=== PATIENT | female | born 1960 | race Caucasian/White ===

== ENCOUNTER 2021-12-29 13:12 | Outpatient (CLI) | payer SELFPAY ==
--- NOTE | 2021-12-29 13:21 | CT_ITS ---
STUDY: CT ABDOMEN AND PELVIS WITHOUT CONTRAST REASON FOR EXAM: Female, 61 years old. Anemia, epigastric AB PAIN,GERD RADIATION DOSAGE (If Supplied By Facility): CTDIvol = ( 17.83 ) mGy, DLP = ( 908.58 ) mGycm TECHNIQUE: Transaxial images were obtained from the dome of the diaphragm to the symphysis pubis without oral contrast, and without intravenous contrast. Sagittal and coronal images were reconstructed. Individualized dose optimization techniques were used for this CT. COMPARISON: None. FINDINGS: There is a faint 1.1 cm nodule in the posterior aspect of the right middle lobe abutting the right minor fissure. A CT scan of the thorax is recommended for further evaluation mild degree of pleural thickening along the posterior medial aspect of the right lower lobe. The visualized portions of the heart are within normal limits. Normal liver. Small amount of perihepatic and perisplenic fluid. Small amount of fluid is seen in the right paracolic gutter as well as in the pelvis in comparison with the ascites. There are multiple small gallstones. Normal spleen. Normal pancreas. Normal bilateral adrenal glands. Several nonobstructive right intrarenal calculi are seen. The largest measures 3 mm. Minimal degree of the fullness of the right renal pelvis. Normal left kidney. Normal visualized stomach. Normal small intestine. There are multiple colonic diverticula consistent with diverticulosis. The appendix is visualized and appears normal. There is diffuse atherosclerotic calcification of the abdominal aorta, without a demonstrated aneurysm. Normal inferior vena cava. There is borderline retroperitoneal lymphadenopathy with enlarged nodes no greater than 10mm in the short axis diameter. Findings suggestive of a 5.2 mm calculus at the base of the bladder posteriorly. This may represent a recently passed ureteral calculus. Normal abdominal wall. Disc space narrowing and degeneration at the L5-S1 level. CT/Abdomen/Pelvis without Cont IMPRESSION: Findings suggestive of 5.2 mm calculus at the base of the bladder posteriorly. Right intrarenal calculi with mild fullness of the right renal pelvis. Multiple small gallstones. Ascites. 1.1 cm faint nodule seen in the posterior aspect of the right middle lobe. Correlation with a CT scan of the thorax is recommended for further evaluation. Electronically Signed: Kemar Jimenez MD at 14:08 EDT ,
== END 2021-12-29 23:59 | disposition home or self-care (01) ==
LOC: CT 13:17
PROVIDERS: PCP Family Medicine; Referring Provider Family Medicine; Visit Provider Family Medicine
DX: K21.9 Gastro-esophageal reflux disease without esophagitis (principal); D64.9 Anemia, unspecified; R10.13 Epigastric pain
CPT/HCPCS: 74176

== ENCOUNTER → 2022-01-03 | Outpatient (CLI) | payer SELFPAY ==
--- NOTE | 2022-01-03 13:21 | CT_ITS ---
INDICATION: LUNG NODULE EXAMINATION: CT CHEST WITHOUT CONTRAST - CT Chest W/O Contrast Injection TECHNIQUE: Helically acquired images were obtained of the chest. A radiation dose optimization technique was used for this scan. IV Contrast dosage and agent: None. COMPARISON: 12/29/2021. FINDINGS: LUNGS, PLEURA AND LARGE AIRWAYS: Biapical pleural reaction is visualized with subtle scattered densities and architectural distortion no evidence of parenchymal lung masses seen. There is visualized in the right upper lung field on axial series 4 image 15. 0.5 cm subpleural nodule visualized in the anterolateral aspect of the right lower lung cardona seen on axial series 4 image 91/127. No evidence of area of opacification along the anterior aspect of the right effusion. Focal area of for groundglass opacification visualized in the right middle lobe seen on axial series 4 image 86 most likely representing a trapping. Scattered areas of patchy airspace density suggestive of air trapping. Bronchial wall thickening is visualized bilaterally, no evidence of endoluminal lesions is seen. No evidence of pneumothorax or pleural effusion is seen. THYROID: No thyroid lesions. HEART AND PERICARDIUM: Heart size is normal. No pericardial effusion. VESSELS: Thoracic aorta is not dilated. MEDIASTINUM AND FOREIGN: Scattered hilar and mediastinal adenopathy. Esophagus is unremarkable. No hiatal hernia. UPPER ABDOMEN: Limited evaluation of upper abdomen demonstrates small free fluid visualized surrounding the liver and spleen. BONES: No suspicious lytic or blastic abnormality. Bilateral breast implants seen demonstrating circumferential calcifications. CT/Chest without Contrast IMPRESSION: No evidence of such suspicious parenchymal lung nodule or mass. Electronically Signed: Rj Hutton MD at 15:10 EDT ,
== END | disposition home or self-care (01) ==
LOC: CT 13:16
PROVIDERS: PCP Family Medicine; Visit Provider Family Medicine
DX: R91.1 Solitary pulmonary nodule (principal); Z98.82 Breast implant status
CPT/HCPCS: 71250

== ENCOUNTER → 2023-02-13 | Outpatient (CLI) | payer SELFPAY ==
--- NOTE | 2023-02-13 09:23 | US_ITS ---
INDICATION: Right upper quadrant pain. EXAMINATION: Ultrasound US Abdomen Limited (quadrant) TECHNIQUE: Fierro scale and color doppler imaging was performed of the right upper quadrant. COMPARISON: CT of the abdomen dated December 29, 2021 FINDINGS: LIVER: The liver contour is nodular. The liver parenchyma is mildly heterogenous. No focal hepatic lesion. There is no free fluid. GALLBLADDER AND BILIARY TREE: There are gallstones within the gallbladder. There is no gallbladder wall thickening nor pericholecystic fluid. The proximal common bile duct measures 3.1 mm, which is within normal limits for the patient''s age. Songraphic Smith''s sign: Negative. PANCREAS: No focal abnormality is demonstrated in the pancreas. No pancreatic ductal dilatation. RIGHT KIDNEY: The right kidney measures 9.5 cm in length. There is no hydronephrosis. There are nonobstructing right renal calculi measuring up to 4 mm. There is ascites. There is a right pleural effusion. US/Abdomen Limited IMPRESSION: Cirrhotic appearing liver. Nonobstructing right renal calculi measuring up to 4 mm. Ascites. Right pleural effusion. Electronically Signed: Christina Hitchcock MD at 11:27 EDT ,
== END | disposition home or self-care (01) ==
LOC: US 09:22
PROVIDERS: PCP Family Medicine; Referring Provider Family Medicine; Visit Provider Family Medicine
DX: R10.11 Right upper quadrant pain (principal); R16.0 Hepatomegaly, not elsewhere classified
CPT/HCPCS: 76705

== ENCOUNTER → 2024-01-02 | Outpatient (CLI) | payer MEDICARE, SELFPAY ==
--- NOTE | 2024-01-02 12:54 | CT_ITS ---
HISTORY: Personal history of nicotine dependence. TECHNIQUE: Helically acquired images were obtained of the chest without contrast. A radiation dose optimization technique was used for this scan. 554 images. COMPARISON: 01/03/2022. FINDINGS: LARGE AIRWAYS: Grossly patent. LUNGS: Mild paraseptal emphysema. Chronic biapical scarring with juxtapleural nodules and scars similar to prior. PLEURA: No pneumothorax or significant pleural effusion. HEART/PERICARDIUM: Heart within normal limits in size with coronary artery calcification. No pericardial effusion. VESSELS: Thoracic aorta nondilated. Mild atherosclerosis. MEDIASTINUM/FOREIGN: Scattered small mediastinal lymph nodes. UPPER ABDOMEN: Nodular liver. CHEST WALL: Intact osseous structures. Chronic calcified breast implant capsules. CT/Low Dose CT Lung Screening IMPRESSION: Lung-RADS category 2: Continue annual screening with low dose CT. Electronically Signed: Leah Hutton MD at 12:16 EDT ,
== END | disposition home or self-care (01) ==
PROVIDERS: PCP Family Medicine; Referring Provider Family Medicine; Visit Provider Family Medicine
DX: Z12.2 Encounter for screening for malignant neoplasm of respiratory organs (principal); J43.2 Centrilobular emphysema; Z87.891 Personal history of nicotine dependence
CPT/HCPCS: 71271

== ENCOUNTER → 2024-04-01 | Outpatient (CLI) | payer MEDICARE, SELFPAY ==
[2024-04-01 10:09] LABS: Erythrocyte Sedimentation Rate 11 mm/hr (0-30)
[2024-04-01 10:44] LABS: ALB/GLOB Ratio 0.8 RATIO (0.9-2.4); AST(SGOT) 33 U/L (15-37); Alanine Aminotransfer ALT/SGPT 33 U/L (13-56); Albumin, Serum 3.2 g/dL (3.2-5.0); Alkaline Phosphatase 127 U/L (45-117); Anion Gap 9 (5-15); BUN 10 mg/dL (7-18); BUN/Creat Ratio 10.8 RATIO (10-20); Calcium,Total 10.3 mg/dL (8.5-10.1); Chloride 100 mmol/L (98-107); Creatinine, Serum 0.92 mg/dL (0.55-1.02); EST Glomerular Filtration Rate 65 mL/min (>60); Est Glom Filt Rate - Afr Amer 78 mL/min (>60); Globulin 4.2 g/dL (2.2-4.2); Glucose 211 mg/dL (74-106); LDH 132 U/L (84-246); Potassium 3.8 mmol/L (3.5-5.1); Protein, Total 7.4 g/dL (6.4-8.2); Sodium Level 135 mmol/L (136-145)
[2024-04-04 15:09] LABS: Anti-Centromere B Ab <0.2 AI (0.0-0.9); Anti-Chromatin <0.2 AI (0.0-0.9); Anti-Jo <0.2 AI (0.0-0.9); Anti-Mitochondrial AB 23.9 Units (0.0-20.0); Anti-Scleroderma-70 AB <0.2 AI (0.0-0.9); Anti-dsDNA Ab <1 IU/mL (0-9); Beef <0.10 kU/L (Class 0); Chocolate <0.10 kU/L (Class 0); Codfish <0.10 kU/L (Class 0); Corn <0.10 kU/L (Class 0); Egg, Whole <0.10 kU/L (Class 0); Milk (Cow) <0.10 kU/L (Class 0); Mussels <0.10 kU/L (Class 0); Peanut <0.10 kU/L (Class 0); Pork <0.10 kU/L (Class 0); RNP Ab <0.2 AI (0.0-0.9); SJOGREN'S Anti-SS-A test < 0.2 AI (0.0-0.9); SJOGREN'S Anti-SS-B test < 0.2 AI (0.0-0.9); Salmon <0.10 kU/L (Class 0); Shrimp <0.10 kU/L (Class 0); Smith Ab <0.2 AI (0.0-0.9); Soybean <0.10 kU/L (Class 0); Tuna <0.10 kU/L (Class 0)
[2024-04-04 19:07] LABS: ACCA 29 units (0-90); ALCA 28 units (0-60); AMCA 17 units (0-100); Albumin 3.4 g/dL (2.9-4.4); Alpha-1-Globulins 0.3 g/dL (0.0-0.4); Alpha-2-Globulins 0.7 g/dL (0.4-1.0); Anti-Smooth Muscle ABS 7 Units (0-19); Cytoplasmic Ab (C-ANCA) <1:20 titer (Neg:<1:20); Endomysial Antibody IgA Negative (Negative); Gamma Globulin 1.1 g/dL (0.4-1.8); IMMUNOFIXATION RESULT,S Comment: (.); Immunoglobulin A 484 mg/dL (87-352); Immunoglobulin E 11 IU/mL (6-495); Immunoglobulin G 1050 mg/dL (586-1602); Immunoglobulin M 180 mg/dL (26-217); PROEL- TOTAL PROTEIN 6.9 g/dL (6.0-8.5); Perinuclear Ab (P-ANCA) <1:20 titer (Neg:<1:20); gASCA 24 units (0-50); t-Transglutaminase IgA <2 U/mL (0-3)
== END | disposition home or self-care (01) ==
PROVIDERS: PCP Family Medicine; Referring Provider Internal Medicine Gastroenterology; Visit Provider Internal Medicine Gastroenterology
DX: Z12.11 Encounter for screening for malignant neoplasm of colon (principal); D64.9 Anemia, unspecified; R14.0 Abdominal distension (gaseous)
CPT/HCPCS: 36415; 80053; 82784; 82785; 83516; 83615; 84165; 85652; 86003; 86005; 86036; 86140; 86225; 86235; 86255; 86256; 86334; 86671

== ENCOUNTER 2024-04-08 11:09 | Day surgery (SDC) | payer MEDICARE, SELFPAY ==
[2024-04-08 11:29] VITALS: BP 153/81; PULSE 96; RESP 16; TEMP 36.3; O2SAT 97; BMI 34.0
--- NOTE | 2024-04-08 11:37 | HP.PCM_ITS ---
History and Physical Date of Admission: 04/08/24 3 F who presents to the office today for initial consult. *[facility] established 7.16.24 pt reports a hx of anemia and GERD. Pt states that she is nauseous almost every day. Had been having constipation, started on lactulose, is now having a loose bm every day; denies blood in the stool. Pt re ports that she had her second iron infusion last week. ROS Const Constitutional: Positive for fatigue and weakness; No fever(s) or weight change ENT ENT: No difficulty swallowing Cardio Cardiology: Positive for leg pain with exertion Gastro GI: Positive for abdominal pain, bloating, change in bowel habits, constipation, diarrhea, excessive flatus and nausea/dyspepsia; No belching, change in stool character, coffee ground emesis, cramping, heartburn, difficulty swallowing, feeling full early, incontinent of stools, Vomiting blood/hematemesis, Blood in stool, loose stools, Black,tarry stools, p ain with swallowing, vomiting or other Musc Musculoskeletal: Positive for joint pain, back pain, muscle cramps, muscle weakness, stiffness, restless legs and leg pain with exertion Skin Skin: Positive for dry skin; No yellowing of the eye or itchy eyes Neuro Neurology: Positive for weakness and restless legs Psych Psychiatric: No anxiety and No depression Endo Endocrine: Positive for fatigue; No weight change Aller/Imm Allergy/Immunologic: No itchy eyes Aleksandr/Lymp Hematologic/Lymphatic: Positive for easy bruising; No easy bleeding Exam Const General: cooperative and comfortable Nutritional Appearance: average body habitus and well nourished [facility] Head: normal to inspection Ears: hearing grossly normal bilaterally Nose: external nose normal Face and sinus: normal facial exam Mouth: oral mucosae normal Throat: posterior oropharynx normal Eyes General: appearance normal, both eyes and all related structures Neck Neck: normal visual inspection Chest Chest palpation & inspection: normal inspection of the chest and normal palpation of entire chest wall Resp Effort & Inspection: normal respiratory effort Auscultation: Bilateral: Clear to Auscultation Cardio Palpation: normal PMI Rate: regular rate Rhythm: regular rhythm GI Inspection: normal to inspection Auscultation: normal bowel sounds Percussion: normal to percussion Palpation: no hepatosplenomegaly Skin General: no rashes or lesions noted Neuro General: patient alert Extrem General: normal to inspection Psych Affect: normal affect Assessment and Plan Assessment and Plan (1) Abdominal pain: (2) Encounter for screening for malignant neoplasm of colon: Status: Acute (3) Anemia: Status: Acute (4) Bloating: Status: Acute Plan: Very pleasant 63-year-old with past medical history of diabetes mellitus, complicated by lower extremity swelling and neuropathy. She has been experiencing worsening iron deficiency anemia couple years. She arrives here for a screening colonoscopy evaluation. She has never had a colonoscopy in the past. She has no family history of GI malignancy. She has not seen any blood in her stool and she had a fecal occult test which was negative for blood. She has received multiple iron transfusions as she did not tolerate oral iron. She recently had an echocardiogram of her heart which she said was normal. We are waiting on her official report. Her seems to range from 6-10. Her MCV ranges from 62-70. Her platelet count ranges from 300-3 50. Her BUN and creatinine ratio. Her last iron studies show 16, ferritin 18, TIBC 324. Reticulocyte count 2%. She has had a long time ago she was determined to be vitamin C deficiency. She does take vitamin C on a daily basis. She does have intermittent diarrhea and constipation. Recently her primary care provider lactulose therapy for her constipation. I asked her how it afffects her Blood sugars. She does not check her blood sugar. She denies any rash. She denies any autoimmune disease. Differential diagnosis for symptoms does include celiac disease, Crohn's disease, small bacterial overgrowth, gastroparesis, calculus cholecystitis, neoplasia, peptic ulcer disease, gastric antral vascular ectasia, Buddy's erosions, protein neuropathy, diabetic diarrhea, dumping, angiodysplasia. Recommendations: -EGD and colonoscopy to evaluate upper and lower GI tract for structural abnormalities and etiology of her anemia -Celiac profile -Inflammatory bowel disease profile -Food allergy testing -ESR, CRP, LDH, protein electrophoresis -CMP -Repeat iron studies -Possible capsule endoscopy -Gastric emptying study -HIDA scan with CCK Orders: Orders ANCA Today D64.9 - Anemia, unspecified, R14.0 - Abdominal distension (gaseous), Z12.11 - Encounter for screening for malignant neoplasm of colon Anti-Mitochondrial AB Today D64.9 - Anemia, unspecified, R14.0 - Abdominal distension (gaseous), Z12.11 - Encounter for screening for malignant neoplasm of colon Anti-Smooth Muscle ABS Today D64.9 - Anemia, unspecified, R14.0 - Abdominal distension (gaseous), Z12.11 - Encounter for screening for malignant neoplasm of colon Celiac Disease Profile Today D64.9 - Anemia, unspecified, R14.0 - Abdominal distension (gaseous), Z12.11 - Encounter for screening for malignant neoplasm of colon Comprehensive Metabolic Profil Today D64.9 - Anemia, unspecified, R14.0 - Abdominal distension (gaseous), Z12.11 - Encounter for screening for malignant neoplasm of colon CRP Today D64.9 - Anemia, unspecified, R14.0 - Abdominal distension (gaseous), Z12.11 - Encounter for screening for malignant neoplasm of colon Erythrocyte Sed Rate Today D64.9 - Anemia, unspecified, R14.0 - Abdominal distension (gaseous), Z12.11 - Encounter for screening for malignant neoplasm of colon LDH Today D64.9 - Anemia, unspecified, R14.0 - Abdominal distension (gaseous), Z12.11 - Encounter for screening for malignant neoplasm of colon IBD Expanded Profile Today D64.9 - Anemia, unspecified, R14.0 - Abdominal distension (gaseous), Z12.11 - Encounter for screening for malignant neoplasm of colon Hepatobilliary Img w/Pharm Int Today D64.9 - Anemia, unspecified, R14.0 - Abdominal distension (gaseous), Z12.11 - Encounter for screening for malignant neoplasm of colon Gastric Emptying Study Today D64.9 - Anemia, unspecified, R14.0 - Abdominal distension (gaseous), Z12.11 - Encounter for screening for malignant neoplasm of colon Allergen, Food Profile 14 Today D64.9 - Anemia, unspecified, R14.0 - Abdominal distension (gaseous), Z12.11 - Encounter for screening for malignant neoplasm of colon REED Comprehensive Panel Today D64.9 - Anemia, unspecified, R14.0 - Abdominal distension (gaseous), Z12.11 - Encounter for screening for malignant neoplasm of colon OMKAR + Protein Elect, Serum Today D64.9 - Anemia, unspecified, R14.0 - Abdominal distension (gaseous), Z12.11 - Encounter for screening for malignant neoplasm of colon Immunoglobulins G/A/M/E Today D64.9 - Anemia, unspecified, R14.0 - Abdominal distension (gaseous), Z12.11 - Encounter for screening for malignant neoplasm of colon Allergen, Food Profile 14 Today D64.9 - Anemia, unspecified, T78.40XA - Allergy, unspecified, initial encounter, Z12.11 - Encounter for screening for malignant neoplasm of colon I have examined the patient and the H&P has been reviewed. There are no clinical changes since date of exam.
[2024-04-08] MEDS: Lactated Ringers 1,000 ML 15 ML IV (11:39)
--- NOTE | 2024-04-08 11:57 | PCM.PRE.AN2 ---
ASA Classification* ASA Classification ASA Classification: 3 Assessment & Plan Anesthesia* Anesthesia Assessment Anesthesia Assessment: Discussed sedation and/or anesthesia options, risks, benefits, and alternatives with patient/parents/legal guardian/POA. Questions invited. The patient/parents/legal guardian/POA seems to understand and agrees to proceed with anesthesia plan. Reviewed the physical assessment, medical history, allergy history and patient home medications list prior to surgery/procedure/anesthetic and documented any changes. Performed airway and anesthesia risk assessments. Anesthesia Type Anesthesia Type: MAC History Source History Obtained from:: Patient and Chart Anesthesia Focused Assessment* Temperature: 97.3 F Pulse Rate: 96 Blood Pressure: 153/81 Respiratory Rate: 16 Pulse Ox: 97 Oxygen Delivery Method: Room Air Airway Assessment Mouth opens: >3 cm Mallampati Score: III Teeth Condition: Missing (Several missing teeth. Rest of the teeth are tight) Neck Range of motion (ROM): Full ROM Focused Labs Anesthesia Preop lab: CBC CHEMISTRY Potassium 3.8 mmol/L (3.5-5.1) 04/01/24 08:53 Sodium 135 mmol/L (136-145) L 04/01/24 08:53 BUN 10 mg/dL (7-18) 04/01/24 08:53 Creatinine 0.92 mg/dL (0.55-1.02) 04/01/24 08:53 Glucose 211 mg/dL (74-106) H 04/01/24 08:53 COAG Pre-Assessment Diagnosis/Proposed Procedure Planned Operative Procedure(s): EGD/CSCOPE Anesthesia History Anesthesia History - operating room specialist: Anesthesia History - operating room specialist Hx Hospitalization No 04/03/24 13:24 Any Problems With Anesthesia No: NO SURGERY HX 04/03/24 13:24 Cholinesterase deficiency No 04/03/24 13:24 You/Your Family Experience No 04/03/24 13:24 fever (hyperthermia) with Relationship Recent Exposure to Contagious No 04/08/24 11:29 Disease Does patient have nerve No 04/03/24 13:24 stimulator Patient instructed to have device shut off --Does patient have Pacemaker No 04/08/24 11:29 or ICD? When Was Last Pacemaker Check QUESTION #4 FULL TEXT: You/Your Family Experience fever (hyperthermia) with Anesthesia Last Oral Intake Last Oral intake: Last Oral Intake NPO since 06:00 04/08/24 11:29 Meds taken in AM with sips of Yes 04/08/24 11:29 water? Meds patient instructed to see mar 04/08/24 11:29 take am of surgery PONV PONV - operating room specialist: PONV - operating room specialist Female Yes 04/03/24 13:24 HX of Motion Sickness No 04/03/24 13:24 HX of N/V After Surgery No 04/03/24 13:24 Non-Smoker No 04/03/24 13:24 Duration of Surgery greater No 04/03/24 13:24 than 60 minutes Number of Risk Factors 1 04/03/24 13:24 PONV Score Low Risk 04/03/24 13:24 Height & Weight Height & Weight: Anesthesia: Height & Weight Height 5 ft 7 in 04/08/24 11:29 Weight: 98.43 kg 04/08/24 11:29 Body Mass Index (BMI) 34.0 04/08/24 11:29 Respiratory Assessment Respiratory Assessment - operating room specialist: Respiratory Tract Infection Hx - operating room specialist Hx Respiratory Tract Infection No 04/03/24 13:24 STOP Sleep Apnea STOP Sleep Apnea - operating room specialist: STOP Sleep Apnea - operating room specialist Hx Hypertension Yes: CONTROLLED WITH MED 04/03/24 13:24 Hx Sleep Apnea No 04/03/24 13:24 CPAP BIPAP Do you snore loudly (louder No 04/03/24 13:24 than talking or can be heard Do you often feel tired/ Yes 04/03/24 13:24 fatigued/ sleepy during daytime? Has anyone observed you stop No 04/03/24 13:24 breathing during sleep? STOP Results Positive 04/03/24 13:24 QUESTION #5 FULL TEXT : Do you snore loudly (louder than talking or can be heard through closed doors)? 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 Specify any problems Hx of Preganancy in last 3 No 04/03/24 13:24 Months Nurse Filling Out Transfusion DSCHRIBER 04/03/24 13:24 & Questions: Date: 04/03/24 04/03/24 13:24 Time: 13:04/03/24 13:24 Patient unable to answer at this time (ie. confused, unrespo /Reproduction History /Reproductive History - operating room specialist: /Reproductive Hx- operating room specialist Hx Now No 04/03/24 13:24 Gestational Age (in weeks): EDC: Hx Hx Para Hx Section SAB No 04/03/24 13:24 Active Medications Active Medications: Current Medications Generic Name Dose Route Start Last Admin Trade Name Freq PRN Reason Stop Dose Admin Lactated Ringer's 1,000 mls @ 15 mls/hr 04/08/24 11:15 04/08/24 11:39 IV 15 mls/hr .Q48H ADRIANA Administration PFSH Medical History History of steroid therapy Low iron Easy bruising Restless legs Back pain Migraine headache Syncope Dietary restriction Wears glasses Post-menopausal Diabetes Anemia Gastric reflux Smoker Shortness of breath on exertion Chronic cough History of pain when walking History of edema History of stress test History of irregular heartbeat Cardiology follow-up encounter History of cervical dysplasia COPD (chronic obstructive pulmonary disease) HTN (hypertension) Home Medications ?Medication ?Instructions ?Recorded ?Last Taken ?Type albuterol 90 mcg-budesonide 80 2 inh inhalation Q4-6H PRN 02/04/24 04/08/24 History mcg/actuation HFA aerosol inhaler shortness of breath albuterol sulfate 2.5 mg/3 mL 2.5 mg inhalation Q4-6H PRN 02/04/24 Unknown History (0.083 %) solution for nebulization shortness of breath or wheezing aspirin 81 mg tablet,delayed 81 mg PO DAILY 02/04/24 04/05/24 History release (Adult Low Dose Aspirin) cholecalciferol (vitamin D3) 50 50 mcg PO BID 02/04/24 Unknown History mcg (2,000 unit) capsule diltiazem HCl 180 mg capsule,24 180 mg PO DAILY 02/04/24 04/08/24 06:30 History hr,extended release furosemide 40 mg tablet (Lasix) 40 mg PO DAILY 02/04/24 Unknown History glimepiride 4 mg tablet 4 mg PO BID 02/04/24 Unknown History metformin 750 mg tablet,extended 750 mg PO BID 02/04/24 Unknown History release 24 hr metoprolol tartrate 50 mg tablet 50 mg PO DAILY 02/04/24 04/08/24 06:30 History metoprolol tartrate 75 mg tablet 87.5 mg PO HS 02/04/24 Unknown History omeprazole 40 mg capsule,delayed 40 mg PO DAILY 02/04/24 04/08/24 06:30 History release potassium chloride 10 mEq 10 meq PO QHS 02/04/24 Unknown History tablet,extended release(part/cryst) fexofenadine 60 mg-pseudoephedrine 1 tab PO BID PRN allergy symptoms 02/05/24 Unknown History ER 120 mg tablet,ext.release,12 hr umeclidinium 62.5 mcg-vilanterol 1 inh inhalation DAILY 02/05/24 04/08/24 History 25 mcg/actuation powdr for inhalation (Anoro Ellipta) ascorbic acid (vitamin C) 500 mg 500 mg PO DAILY 02/13/24 Unknown History tablet (C-500) lactulose 10 gram/15 mL oral 10 g PO DAILY 04/01/24 Unknown History solution Allergy/AdvReac Type Severity Reaction Status Date / Time fish derived (seafood - Allergy Severe Anaphylaxis Verified 04/08/24 11:28 derived) iodine Allergy Severe Other Verified 04/08/24 11:28 Lanolin (Wool alcohols) Allergy Severe Itching Verified 04/08/24 11:28 milk Allergy Severe Other Verified 04/08/24 11:28 shellfish derived (seafood Allergy Severe Anaphylaxis Verified 04/08/24 11:28 - shellfish) adhesive tape Allergy Rash Verified 04/08/24 11:28 bacitracin Allergy PT UNSURE Verified 04/08/24 11:28 OF REACTION moxifloxacin Allergy PT UNSURE Verified 04/08/24 11:28 OF REACTION Penicillins Allergy PT UNSURE Verified 04/08/24 11:28 OF REACTION polymyxin B Allergy PT UNSURE Verified 04/08/24 11:28 OF REACTION latex AdvReac Rash Verified 04/08/24 11:28 Surgical History History of augmentation of both breasts Social History household members: other details: current occupational status: retired Smoking Status: Current every day smoker tobacco type: cigarettes substance use type: does not use Review of Systems (Anesthesia) ROS Narrative System reviewed and no additional complaints, except as documented.
--- NOTE | 2024-04-08 12:00 | EGD_PTH ---
PATIENT: JAYCEE ARTHUR LOC: EN U#:[id number] AGE/SX: 63/F ROOM: RE04/08/[address]: Dr. Emeterio Figueroa DO : 1960 BED: DIS: 04/08/2024 SPEC #: [id number] RECD: 04/08/24 13:50 STATUS: TD HOLDEN #: [id number] JAN: 04/08/24 12:[address]: Emeterio Figueroa DEPT: SURGICAL PATHOLOGY RECD BY: Gypsy Lopes ENTERED: 04/09/24 07:57 SP TYPE: EGD BIOPSY OT DR: Dr. Curtis Keller MD Tissues: A - Duodenum, NOS B - Gastric mucous membrane C - Esophagus, NOS D - Ascending colon E - COLON BIOPSY Procedures: Surgery Specimen Level IV HEADER OPERATION: Colonoscopy with polypectomy and electrohemostasis, EGD with biopsy PRE-OP DIAGNOSIS: Abdominal pain, encounter for screening for malignant neoplasm of colon, anemia, bloating, gastritis, colitis TISSUE SUBMITTED: A- Duodenum biopsy, B- Gastric body biopsy, C- Gastroesophageal junction biopsy, D- Ascending colon polyp, E- Random colon biopsy MICROSCOPIC DIAGNOSIS A. Duodenum, biopsy: Fragments of small intestinal mucosa, no pathologic diagnosis. B. Gastric body, biopsy: Mild gastritis. See microscopic description and comment. C. Gastroesophageal junction, biopsy: A fragment of gastric mucosa with mild chronic inflammation. Intestinal metaplasia (goblet cell metaplasia) not identified. See comment. D. Ascending colon polyp, polypectomy: Hyperplastic polyp. E. Colon, random biopsy: Fragments of colonic mucosa, no pathologic diagnosis. SJ/mr 04/10/2024 COMMENT B. The results of immunohistochemistry for Helicobacter pylori will be reported separately ([id number]). C. Alcian blue/PAS stain with matched control is used in the evaluation of the specimen. MICROSCOPIC DESCRIPTION Slides are reviewed. B. The specimen shows fragments of gastric mucosa with chronic inflammatory cell infiltrates in the lamina propria consisting of lymphocytes and plasma cells, consistent with mild chronic gastritis. GROSS DESCRIPTION A. Received in fixative is one container labeled with the patient's name and designated Duodenum biopsy. The specimen consists of two irregular fragment of light renee soft tissue that measuring in aggregate 0.4 x 0.3 x 0.1 cm. The specimen is totally submitted in one cassette. B. Received in fixative is one container labeled with the patient's name and designated Gastric body biopsy. The specimen consists of one irregular fragment of light renee soft tissue that measure 0.4 x 0.3 x 0.1 cm. The specimen is totally submitted in one cassette. C. Received in fixative is one container labeled with the patient's name and designated GE junction biopsy. The specimen consists of one irregular fragment of light renee soft tissue that measures 0.5 x 0.3 x 0.2 cm. The specimen is totally submitted in one cassette. D. Received in fixative is one container labeled with the patient's name and designated Ascending colon polyp biopsy. The specimen consists of a pink-red polyp measuring 1.0 x 0.9 x 0.7 cm. The presumed base is inked. The polyp is serially sectioned and submitted entirely in one cassette. E. Received in fixative is one container labeled with the patient's name and designated Random colon biopsy. The specimen consists of multiple irregular fragments of light renee soft tissue that in aggregate measure 1.2 x 0.3 x 0.1 cm. The specimen is totally submitted in one cassette. Debra 04/09/2024 TC:3 CPT:12140n7,79644
--- NOTE | 2024-04-08 12:00 | IMM_PTH ---
PATIENT: JAYCEE ARTHUR LOC: EN U#:[id number] AGE/SX: 63/F ROOM: RE04/08/[address]: Dr. Emeterio Figueroa DO : 1960 BED: DIS: 04/08/2024 SPEC #: [id number] RECD: 04/09/24 08:25 STATUS: TD REGeoff #: [id number] JAN: 04/08/24 12:[address]: Emeterio Figueroa DEPT: IMMUNOHISTOCHEMISTRY RECD BY: Mihai Link ENTERED: 04/09/24 08:26 SP TYPE: IMMUNO OTHR DR: Dr. Curtis Keller MD Tissues: B - Gastric mucous membrane Procedures: H Pylori (initial) PHYSICIAN & INSTITUTION [place] [id number] SPECIMEN INFORMATION: Tissue Source: B- Gastric body biopsy Clinical Info: Abdominal pain, encounter for screening for malignant neoplasm of colon, anemia, bloating, gastritis, colitis Specimen Number: [id number] CPT code: 88587 METHODOLOGY: Deparaffinized sections of prefer/formalin-fixed tissue or PAP/DQ stained slides are incubated with monoclonal/polyclonal antibodies/oligonucleotide probes. Localization is made via biotin free immunoperoxidase method. Appropriate controls are performed and reacted as expected. Results on target cell population are indicated in the following table: RESULTS: ANTIBODY / CLONE RESULT Block B H Pylori (polyclonal) negative These tests were developed and their performance characteristics determined by [facility]. They may not have been cleared or approved by the U.S. Food and Drug Administration. The FDA has determined that such clearance or approval is not necessary. The above immunohistochemical/dualISH markers are ordered and reviewed by the Pathologist. INTERPRETATION: B. Gastric body, biopsy: Negative for Helicobacter pylori organisms. FRITZ/ 04/10/2024
[2024-04-08 12:06] VITALS: BP 153/81; PULSE 96; RESP 16; TEMP 36.3; O2SAT 97
[2024-04-08 12:13] LABS: Bedside Glucose 194 mg/dL (74-106)
--- NOTE | 2024-04-08 12:59 | PCM.POST.ANE ---
Anesthesia: Postop Eval I Current Vital Signs Temperature: 97.5 F Pulse Rate: 78 Blood Pressure: 112/68 Respiratory Rate: 16 Pulse Ox: 100 Oxygen Delivery Method: Room Air Assessment Airway patent: Yes Spontaneous unlabored respirations: Yes Mental status: Awake and Calm nausea: No Vomiting: No Anesthesia Complication: No Fluid Hydration Crystalloid volume administer (ml): 800 Total IV fluid infused: 800 Progress Note Anesthesia document: Postop Eval 1 completed: Yes
[2024-04-08 13:00] VITALS: BP 112/68; BP 121/68; BP 153/81; PULSE 78; PULSE 79; RESP 16; TEMP 36.4; O2SAT 100; O2SAT 97; O2SAT 99
--- NOTE | 2024-04-08 13:00 | OP.CCLET_ITS ---
04/08/2024 Curtis Keller Re : Upper GI endoscopy procedure for Vijaya Monreal Dear Krishna This procedure was performed on Monday, April 08, 2024. My impressions and recommendations are as follows: Impressions : - Normal esophagus. - Portal hypertensive gastropathy. Biopsied. - A single gastroesophageal junction polyp. Resected and retrieved. - Normal second portion of the duodenum. Biopsied. Recommendations : - Discharge patient to home. - Resume previous diet. - Continue present medications. - Await pathology results. My findings are described in the full procedure note, which is enclosed. If I can be of further assistance, please feel free to contact me at . Sincerely, Emeterio Figueroa, 04/08/2024 1:00:13 PM This report has been signed electronically.
--- NOTE | 2024-04-08 13:00 | OP.EGD_ITS ---
Patient Name: Vijaya Monreal Procedure Date: 04/08/2024 12:00 PM Date of : 1960 Age: 63 Procedure: Upper GI endoscopy Indications: Epigastric abdominal pain Providers: Emeterio Figueroa DO Referring MD: Emeterio Figueroa DO Medicines: Monitored Anesthesia Care Patient Profile: This is a 63 year old female. Refer to note in patient chart for documentation of history and physical. Patient has symptoms of chronic abdominal cramping, chronic abdominal distention and acute epigastric abdominal pain. Complications: No immediate complications. Procedure: Pre-Anesthesia Assessment: - Prior to the procedure, a History and Physical was performed, and patient medications and allergies were reviewed. The patient is competent. The risks and benefits of the procedure and the sedation options and risks were discussed with the patient. All questions were answered and informed consent was obtained. Patient identification and proposed procedure were verified by the physician in the pre-procedure area. Mental Status Examination: alert and oriented. Airway Examination: normal oropharyngeal airway and neck mobility. Respiratory Examination: clear to auscultation. CV Examination: normal. Prophylactic Antibiotics: The patient does not require prophylactic antibiotics. Prior Anticoagulants: The patient has taken no anticoagulant or antiplatelet agents except for NSAID medication. ASA Grade Assessment: II - A patient with mild systemic disease. After reviewing the risks and benefits, the patient was deemed in satisfactory condition to undergo the procedure. The anesthesia plan was to use monitored anesthesia care (MAC). Immediately prior to administration of medications, the patient was re-assessed for adequacy to receive sedatives. The heart rate, respiratory rate, oxygen saturations, blood pressure, adequacy of pulmonary ventilation, and response to care were monitored throughout the procedure. The physical status of the patient was re-assessed after the procedure. After obtaining informed consent, the endoscope was passed under direct vision. Throughout the procedure, the patient's blood pressure, pulse, and oxygen saturations were monitored continuously. The colonoscope was introduced through the mouth, and advanced to the second part of duodenum. The upper GI endoscopy was accomplished without difficulty. The patient tolerated the procedure well. Scope In: 12:16:58 PM Scope Out: 12:25:25 PM Total Procedure Duration Time 0 hours 8 minutes 27 seconds Findings: The examined esophagus was normal. Moderate portal hypertensive gastropathy was found in the gastric body. Biopsies were taken with a cold forceps for histology. Verification of patient identification for the specimen was done. Estimated blood loss was minimal. A single 5 mm sessile polyp with no stigmata of recent bleeding was found at the gastroesophageal junction. The polyp was removed with a cold snare. Resection and retrieval were complete. Verification of patient identification for the specimen was done. Estimated blood loss was minimal. The second portion of the duodenum was normal. Biopsies were taken with a cold forceps for histology. Verification of patient identification for the specimen was done. Estimated blood loss was minimal. Impression: - Normal esophagus. - Portal hypertensive gastropathy. Biopsied. - A single gastroesophageal junction polyp. Resected and retrieved. - Normal second portion of the duodenum. Biopsied. Recommendation: - Discharge patient to home. - Resume previous diet. - Continue present medications. - Await pathology results. Procedure Code(s): --- Professional --- 56995, Esophagogastroduodenoscopy, flexible, transoral; with removal of tumor(s), polyp(s), or other lesion(s) by snare technique 29415, 59,51, Esophagogastroduodenoscopy, flexible, transoral; with biopsy, single or multiple CPT copyright 2021 [employer]. All rights reserved. The codes documented in this report are preliminary and upon hogshead packer review may be revised to meet current compliance requirements. Emeterio Figueroa DO 04/08/2024 1:00:13 PM This report has been signed electronically. Number of Addenda: 0 Note Initiated On: 04/08/2024 12:00 PM
--- NOTE | 2024-04-08 13:04 | OP.COLON_ITS ---
Patient Name: Vijaya Monreal Procedure Date: 04/08/2024 12:25 PM Date of : 1960 Age: 63 Procedure: Colonoscopy Indications: Clinically significant diarrhea of unexplained origin Providers: Emeterio Figueroa DO Referring MD: Emeterio Figueroa DO Medicines: Monitored Anesthesia Care Patient Profile: This is a 63 year old female. Refer to note in patient chart for documentation of history and physical. Patient has symptoms of chronic abdominal cramping, chronic abdominal distention and acute epigastric abdominal pain. Last Colonoscopy: date unknown. Unable to locate last colonoscopy report. Complications: No immediate complications. Procedure: Pre-Anesthesia Assessment: - Prior to the procedure, a History and Physical was performed, and patient medications and allergies were reviewed. The patient is competent. The risks and benefits of the procedure and the sedation options and risks were discussed with the patient. All questions were answered and informed consent was obtained. Patient identification and proposed procedure were verified by the physician in the pre-procedure area. Mental Status Examination: alert and oriented. Airway Examination: normal oropharyngeal airway and neck mobility. Respiratory Examination: clear to auscultation. CV Examination: normal. Prophylactic Antibiotics: The patient does not require prophylactic antibiotics. Prior Anticoagulants: The patient has taken no anticoagulant or antiplatelet agents except for NSAID medication. ASA Grade Assessment: II - A patient with mild systemic disease. After reviewing the risks and benefits, the patient was deemed in satisfactory condition to undergo the procedure. The anesthesia plan was to use monitored anesthesia care (MAC). Immediately prior to administration of medications, the patient was re-assessed for adequacy to receive sedatives. The heart rate, respiratory rate, oxygen saturations, blood pressure, adequacy of pulmonary ventilation, and response to care were monitored throughout the procedure. The physical status of the patient was re-assessed after the procedure. After I obtained informed consent, the scope was passed under direct vision. Throughout the procedure, the patient's blood pressure, pulse, and oxygen saturations were monitored continuously. The colonoscope was introduced through the anus and advanced to the cecum, identified by appendiceal orifice and ileocecal valve. The colonoscopy was performed without difficulty. The patient tolerated the procedure well. The quality of the bowel preparation was adequate. The ileocecal valve, appendiceal orifice, and rectum were photographed. Scope In: 12:28:21 PM Scope Withdrawal Time 0 hours 14 minutes 8 seconds Scope Out: 12:47:06 PM Total Procedure Duration Time 0 hours 18 minutes 45 seconds Findings: The perianal and digital rectal examinations were normal. Moderate rectal prolapse was present. Multiple small-mouthed diverticula were found in the recto-sigmoid colon, sigmoid colon and descending colon. A 14 mm polyp was found in the ascending colon. The polyp was sessile. The polyp was removed with a hot snare. Resection and retrieval were complete. To prevent bleeding post-intervention, one hemostatic clip was successfully placed. Clip knife setter: [place]ubeo. There was no bleeding at the end of the procedure. An area of mildly congested mucosa was found in the recto-sigmoid colon, in the sigmoid colon, in the descending colon, at the splenic flexure, in the transverse colon and in the ascending colon. Biopsies were taken with a cold forceps for histology. Verification of patient identification for the specimen was done. Estimated blood loss was minimal. Impression: - Rectal prolapse. - Diverticulosis in the recto-sigmoid colon, in the sigmoid colon and in the descending colon. - One 14 mm polyp in the ascending colon, removed with a hot snare. Resected and retrieved. Clip was placed. Clip knife setter: Ajubeo. - Congested mucosa in the recto-sigmoid colon, in the sigmoid colon, in the descending colon, at the splenic flexure, in the transverse colon and in the ascending colon. Biopsied. Recommendation: - Discharge patient to home. - Resume previous diet. - Continue present medications. - Await pathology results. - Repeat colonoscopy in 5 years for surveillance. Procedure Code(s): --- Professional --- 17717, Colonoscopy, flexible; with removal of tumor(s), polyp(s), or other lesion(s) by snare technique [id number], 59, Colonoscopy, flexible; with biopsy, single or multiple CPT copyright 2021 [employer]. All rights reserved. The codes documented in this report are preliminary and upon speech language pathologist prn review may be revised to meet current compliance requirements. Emeterio Figueroa DO 04/08/2024 1:04:10 PM This report has been signed electronically. Number of Addenda: 0 Note Initiated On: 04/08/2024 12:25 PM
--- NOTE | 2024-04-08 13:04 | OP.CCLET_ITS ---
04/08/2024 Curtis Keller Re : Colonoscopy procedure for Vijaya Monreal Dear Krishna This procedure was performed on Monday, April 08, 2024. My impressions and recommendations are as follows: Impressions : - Rectal prolapse. - Diverticulosis in the recto-sigmoid colon, in the sigmoid colon and in the descending colon. - One 14 mm polyp in the ascending colon, removed with a hot snare. Resected and retrieved. Clip was placed. Clip events and promotions assistant: [employer]. - Congested mucosa in the recto-sigmoid colon, in the sigmoid colon, in the descending colon, at the splenic flexure, in the transverse colon and in the ascending colon. Biopsied. Recommendations : - Discharge patient to home. - Resume previous diet. - Continue present medications. - Await pathology results. - Repeat colonoscopy in 5 years for surveillance. My findings are described in the full procedure note, which is enclosed. If I can be of further assistance, please feel free to contact me at . Sincerely, Emeterio Figueroa, 04/08/2024 1:04:10 PM This report has been signed electronically.
[2024-04-08 13:10] VITALS: BP 124/71; BP 153/81; PULSE 77; RESP 16; TEMP 36.4; O2SAT 97
[2024-04-08 13:20] VITALS: BP 153/81
--- NOTE | 2024-04-08 14:09 | POSTOPAN2_ITS ---
Anesthesia Postop Eval I Sum Postop Eval Completion status Anesthesia document: Postop Eval 1 completed: Yes Anesthesia Postop Eval I Summary Anesthesia Postop Eval I Summary: Anesthesia Postop Eval I: Assessment Summary Airway patent Yes 04/08/24 13:00 WIRE WRAPPING MACHINE OPERATOR.[email or web address] Spontaneous unlabored Yes 04/08/24 13:00 WIRE WRAPPING MACHINE OPERATOR.[email or web address] respirations Mental status Awake,Calm 04/08/24 13:00 WIRE WRAPPING MACHINE OPERATOR.[email or web address] nausea No 04/08/24 13:00 WIRE WRAPPING MACHINE OPERATOR.JOLIE Vomiting No 04/08/24 13:00 WIRE WRAPPING MACHINE OPERATOR.JOLIE Anesthesia Postop Eval I: Fluid Summary Crystalloid volume administer 800 04/08/24 13:00 WIRE WRAPPING MACHINE OPERATOR.JOLIE (ml) Colloids volume administered ( ml) Blood Product volume administered (ml) Total IV fluid infused 800 04/08/24 13:00 WIRE WRAPPING MACHINE OPERATOR.JOLIE Anesthesia Postop Eval I: Summary Notes Anesthesia Complication No 04/08/24 13:00 [email or web address] Anesthesia Complication Comment: Post-operative progress note Anesthesia: Postop Eval II Evaluation Mental status: Awake Pain Level: 0 nausea: No Vomiting: No Complications Anesthesia Complication: No
--- NOTE | 2024-04-08 14:09 | PCM.POSTANE2 ---
Anesthesia Postop Eval I Sum Postop Eval Completion status Anesthesia document: Postop Eval 1 completed: Yes Anesthesia Postop Eval I Summary Anesthesia Postop Eval I Summary: Anesthesia Postop Eval I: Assessment Summary Airway patent Yes 04/08/24 13:00 SOLE [email or web address].[email or web address] Spontaneous unlabored Yes 04/08/24 13:00 SOLE [email or web address].JOLIE respirations Mental status Awake,Calm 04/08/24 13:00 SOLE [email or web address].[email or web address] nausea No 04/08/24 13:00 SOLE [email or web address].JOLIE Vomiting No 04/08/24 13:00 SOLE ROUGHER.JOLIE Anesthesia Postop Eval I: Fluid Summary Crystalloid volume administer 800 04/08/24 13:00 SOLE [email or web address].JOLIE (ml) Colloids volume administered ( ml) Blood Product volume administered (ml) Total IV fluid infused 800 04/08/24 13:00 SOLE ROUGHER.JOLIE Anesthesia Postop Eval I: Summary Notes Anesthesia Complication No 04/08/24 13:00 [email or web address].JOLIE Anesthesia Complication Comment: Post-operative progress note Anesthesia: Postop Eval II Evaluation Mental status: Awake Pain Level: 0 nausea: No Vomiting: No Complications Anesthesia Complication: No
== END 2024-04-08 13:47 | disposition home or self-care (01) ==
LOC: EN 11:10 → AC 11:13
PROVIDERS: PCP Family Medicine; Referring Provider Internal Medicine Gastroenterology; Visit Provider Internal Medicine Gastroenterology
PROC: 0DJD8ZZ Inspection of Lower Intestinal Tract, Via Natural or Artificial Opening Endoscopic (ICD-10-PCS; CPT 45378; principal; 2024-04-08 11:55)
DX: Z12.11 Encounter for screening for malignant neoplasm of colon (principal); K76.6 Portal hypertension; J44.9 Chronic obstructive pulmonary disease, unspecified; E11.9 Type 2 diabetes mellitus without complications; K62.3 Rectal prolapse; K57.30 Diverticulosis of large intestine without perforation or abscess without bleeding; D64.9 Anemia, unspecified; K63.5 Polyp of colon; I10 Essential (primary) hypertension; K29.70 Gastritis, unspecified, without bleeding; K21.9 Gastro-esophageal reflux disease without esophagitis; Z79.51 Long term (current) use of inhaled steroids; Z79.82 Long term (current) use of aspirin; Z79.899 Other long term (current) drug therapy; Z79.84 Long term (current) use of oral hypoglycemic drugs
CPT/HCPCS: 45385; 45380; 43251; 43239; 82962; 88305; 88342; J7120; J2405

== ENCOUNTER → 2024-04-16 | Outpatient (CLI) | payer MEDICARE, SELFPAY ==
--- NOTE | 2024-04-16 12:15 | NM_ITS ---
CLINICAL: 63-year-old female with history of abdominal pain. SEMI-SOLID PHASE 99m Tc SULFUR COLLOID GASTRIC EMPTYING STUDY COMPARISON: None available FINDINGS: The patient was administered 1.1 mCi of 99m Tc sulfur colloid mixed with oatmeal and consumed per os. Image acquisitions in the anterior-posterior projection were obtained for 60 minutes. There is prompt visualization of the stomach. There is no gastroesophageal reflux identified. The T ? raw data emptying was calculated to be 31.44 minutes, (Normal: 12-56 minutes). NM/Gastric Emptying Study IMPRESSION: 1. NORMAL 99m Tc sulfur colloid semi-solid phase (oatmeal) gastric emptying imaging examination. A. There is normal and preserved semi-solid phase gastric emptying compared to normal controls. (Kimberli et al, J Nucl Med Tech 38: 186, 2010). Electronically Signed: Kris Keller DO at 23:39 EDT ,
== END | disposition home or self-care (01) ==
LOC: NM 12:13
PROVIDERS: PCP Family Medicine; Referring Provider Internal Medicine Gastroenterology; Visit Provider Internal Medicine Gastroenterology
DX: Z12.11 Encounter for screening for malignant neoplasm of colon (principal); D64.9 Anemia, unspecified; R14.0 Abdominal distension (gaseous)
CPT/HCPCS: 78264; A9541

== ENCOUNTER → 2024-04-21 | Outpatient (CLI) | payer MEDICARE, SELFPAY ==
--- NOTE | 2024-04-21 09:40 | NM_ITS ---
CLINICAL: 3-year-old female with history of abdominal pain. RADIONUCLIDE HEPATOBILIARY SCINTIGRAPHY COMPARISON: Gastric emptying examination dated 04/16/2024 FINDINGS: Following the intravenous administration of 5.9 mCi of 99m Tc Mebrofenin, hepatobiliary images reveal: 1. Relatively prompt and homogeneous radiopharmaceutical concentration is noted by a normal sized liver. No parenchymal defects are identified. 2. Gallbladder activity is identified at 15-30 minutes post radiopharmaceutical administration. 3. Small intestinal tract is observed at 15 minutes following radiotracer provision. 4. Washout of the radiopharmaceutical by the hepatic parenchyma appears qualitatively normal. Cholecystokinin (0.02 ug/kg) was administered intravenously over a 30-minute period. The post CCK gallbladder ejection fraction calculated at 20 minutes following Cholecystokinin administration was noted to be < 5 % (normal greater than 35%). NM/Hepatobilliary Img w/Pharm Int IMPRESSION: 1. ABNORMAL 99m Tc Mebrofenin hepatobiliary imaging examination with Cholecystokinin. A. A gallbladder ejection fraction calculated to be less than 35% following the administration of Cholecystokinin is consistent with the presence of functional hepatobiliary disease (gallbladder and/or sphincter of Oddi dyskinesia) and/or organic hepatobiliary disease (chronic acalculous cholecystitis and/or cystic duct syndrome) in patients with intermediate to high pretest probabilities of hepatobiliary illness. (Luis Desouza et al, Journal of Nuclear Medicine 32:1695, 1991). Electronically Signed: Kris Keller DO at 10:23 EDT ,
== END | disposition home or self-care (01) ==
PROVIDERS: PCP Family Medicine; Referring Provider Internal Medicine Gastroenterology; Visit Provider Internal Medicine Gastroenterology
DX: R14.0 Abdominal distension (gaseous) (principal); D64.9 Anemia, unspecified
CPT/HCPCS: 78227; A9537; J2805

== ENCOUNTER → 2024-06-19 | Outpatient (CLI) | payer MEDICARE, SELFPAY ==
--- NOTE | 2024-06-19 09:13 | US_ITS ---
STUDY: ABDOMINAL ULTRASOUND -ascites survey. REASON FOR VISIT: Female, 63 years old Ascites Survey TECHNIQUE: Ultrasound evaluation of the 4 quadrants was performed with real-time and static nye-scale imaging. TECHNICAL QUALITY: Adequate. COMPARISON: None. FINDINGS: Evaluation of the 4 quadrants was performed. Not enough fluid for safe paracentesis. US/Abdomen Limited IMPRESSION: Not enough fluid for a safe paracentesis. Electronically Signed: Kemar Jimenez MD at 13:57 EDT ,
== END | disposition home or self-care (01) ==
PROVIDERS: PCP Family Medicine; Referring Provider Internal Medicine Gastroenterology; Visit Provider Internal Medicine Gastroenterology
DX: R14.0 Abdominal distension (gaseous) (principal); R10.9 Unspecified abdominal pain
CPT/HCPCS: 76705

== ENCOUNTER → 2025-04-03 | Outpatient (CLI) | payer MEDICARE, SELFPAY ==
[2025-04-03 11:52] LABS: Hematocrit 43.3 % (37-47); Hemoglobin 14.4 g/dL (12.0-15.0); Immature Granulocytes Count 0.050 X10^3/uL (0.0-0.0); Mean Corp Hgb Conc 33.3 g/dL (32-36); Mean Corpuscular Volume 82.3 fL (81-99); Mean Platelet Vol. 9.2 fl (6.2-12.0); NRBC Flagged by Analyzer 0 % (0-5); Platelet Count 228 K/mm3 (150-450); RBC Distribution Width CV 13.4 % (11.6-14.6); RBC Distribution Width SD 39.7 fl (35.1-43.9); Red Blood Count 5.26 M/mm3 (4.2-5.4); White Blood Count 10.1 K/mm3 (4.4-11.0)
[2025-04-03 11:58] LABS: Prothrombin Time (Protime)PT. 13.6 SECONDS (11.7-14.9)
[2025-04-03 12:23] LABS: AST(SGOT) 14 U/L (<=31); Alanine Aminotransfer ALT/SGPT 12 U/L (<=34); Albumin, Serum 4.4 g/dL (3.4-4.8); Alkaline Phosphatase 119 U/L (35-104); Anion Gap 13 (5-15); BUN 26 mg/dL (4-19); BUN/Creat Ratio 13.9 RATIO (10-20); Calcium,Total 11.3 mg/dL (7.6-11.0); Carbon Dioxide 22.8 mmol/L (21.0-32.0); Chloride 100 mmol/L (98-108); Globulin 3.4 g/dL (2.2-4.2); Glucose 130 mg/dL (70-99); Potassium 5.1 mmol/L (3.3-5.1)
[2025-04-03 12:45] LABS: CRP 9.20 mg/L (0.0-3.0); LDH 102 U/L (84-246)
[2025-04-03 12:50] LABS: Ammonia 10.8 umol/L (11-51)
== END | disposition home or self-care (01) ==
PROVIDERS: PCP Family Medicine; Referring Provider Internal Medicine Gastroenterology; Visit Provider Internal Medicine Gastroenterology
DX: K74.60 Unspecified cirrhosis of liver (principal)
CPT/HCPCS: 36415; 80053; 82140; 83615; 85025; 85610; 85652; 86140

== ENCOUNTER → 2025-07-02 | Outpatient (CLI) | payer MEDICARE, SELFPAY ==
[2025-07-02 09:35] LABS: Hematocrit 44.1 % (37-47); Hemoglobin 14.4 g/dL (12.0-15.0); Immature Granulocytes Count 0.120 X10^3/uL (0.0-0.0); Mean Corp Hgb Conc 32.7 g/dL (32-36); Mean Corpuscular Volume 81.4 fL (81-99); Mean Platelet Vol. 9.7 fl (6.2-12.0); NRBC Flagged by Analyzer 0 % (0-5); Platelet Count 311 K/mm3 (150-450); RBC Distribution Width CV 14.6 % (11.6-14.6); RBC Distribution Width SD 42.5 fl (35.1-43.9); Red Blood Count 5.42 M/mm3 (4.2-5.4); White Blood Count 13.5 K/mm3 (4.4-11.0)
[2025-07-02 09:41] LABS: Prothrombin Time (Protime)PT. 14.6 SECONDS (11.7-14.9)
[2025-07-02 09:42] LABS: Partial Thromboplast Time 28.2 Seconds (24.1-36.2)
[2025-07-02 10:17] LABS: AST(SGOT) 15 U/L (<=31); Alanine Aminotransfer ALT/SGPT 10 U/L (<=34); Albumin, Serum 4.5 g/dL (3.4-4.8); Alkaline Phosphatase 110 U/L (35-104); Anion Gap 15 (5-15); BUN 27 mg/dL (4-19); BUN/Creat Ratio 13.3 RATIO (10-20); Calcium,Total 11.0 mg/dL (7.6-11.0); Carbon Dioxide 23.0 mmol/L (21.0-32.0); Chloride 98 mmol/L (98-108); Globulin 2.8 g/dL (2.2-4.2); Glucose 93 mg/dL (70-99); Potassium 3.8 mmol/L (3.3-5.1)
== END | disposition home or self-care (01) ==
LOC: LAB 09:05
PROVIDERS: PCP Family Medicine; Referring Provider Internal Medicine Gastroenterology; Visit Provider Internal Medicine Gastroenterology
DX: K74.60 Unspecified cirrhosis of liver (principal)
CPT/HCPCS: 36415; 80053; 82105; 85025; 85610; 85730